=== PATIENT | male | born 1965 | race Caucasian/White ===

== ENCOUNTER 2017-06-21 17:43 | Emergency (ER) | payer MEDICAID ==
[~2017-06-21] VITALS: Ht 177.8 cm; Wt 100.0 kg
[2017-06-21] MEDS ORDERED: KETOROLAC TROMETHAMINE 30 MG/ML VIAL IM ONE (19:15)
[2017-06-21] MEDS ORDERED: HYDROCODONE/ACETAMINOPHEN 5-325 MG TABLET PO ONE (19:15)
[2017-06-21 20:20] VITALS: BP 138/72
== END 2017-06-21 20:21 | disposition home or self-care (01) ==
LOC: EMS 17:44
DX: M75.01 Adhesive capsulitis of right shoulder (principal)
CPT/HCPCS: 93005; 96372; 99283; J1885

== ENCOUNTER 2024-03-11 06:09 | Emergency (ER) | payer MEDICAID ==
[~2024-03-11] VITALS: Ht 175.3 cm; Wt 115.5 kg
[2024-03-11 06:21] VITALS: BP 138/75; PULSE 80; RESP 18; TEMP 98.6; O2SAT 96
[2024-03-11 06:52] LABS: COVID AG,FIA SOURCE NASAL SWAB
[2024-03-11 07:36] LABS: INFLUENZA TYPE B NEGATIVE FOR TYPE B (NEGATIVE); SARS-COV2 (COVID) ANTIGEN,FIA Negative (Negative)
[2024-03-11 07:44] LABS: INFLUENZA TYPE A POSITIVE FOR TYPE A (NEGATIVE)
== END 2024-03-11 08:58 | disposition home or self-care (01) ==
LOC: EMS 06:10
DX: J11.1 Influenza due to unidentified influenza virus with other respiratory manifestations (principal); Z71.6 Tobacco abuse counseling; Z20.822 Contact with and (suspected) exposure to COVID-19; R07.89 Other chest pain
CPT/HCPCS: 87804; 93005; 99284; Z7502